=== PATIENT | female | born 1935 | race Caucasian/White ===

== ENCOUNTER → 2016-08-03 | Outpatient (CLI) | payer MEDICARE, OTHER ==
[~2016-08-03] MED LIST: ASPIRIN E.C. 8181 MG PO; CALTRATE 600 +1 TAB PO; CENTRUM SILVER1 CTB PO; CLEOCIN HC150 MG/CAP PO; COMBIGAN 0.2%-010 ML OU; COZAAR 50MG50 MG/TAB PO; GLUCOPHAGE1000 MG PO; LIQUID MAGNESI400 MG PO; NEXIUM 40MG40 MG PO; RITE AID KRILL500 MG PO; VITAMIN B121000 MCG PO; VITAMIN C500 MG PO; VITAMIN D2000 I1 PO
== END ==
LOC: MC.RAD 13:40
DX: Z12.31 Encounter for screening mammogram for malignant neoplasm of breast (principal)

== ENCOUNTER → 2017-09-20 | Outpatient (CLI) | payer MEDICARE, OTHER | LOC: MC.RAD 11:10 | DX: Z12.31 Encounter for screening mammogram for malignant neoplasm of breast (principal) ==

== ENCOUNTER 2017-11-01 14:30 | Outpatient (RCR) | payer MEDICARE, OTHER | END 2017-11-08 09:09 | disposition home or self-care (01) | LOC: WSPT 14:30 | DX: M54.41 Lumbago with sciatica, right side (principal) | CPT/HCPCS: G8978-GP; G8979-GP ==

== ENCOUNTER 2017-11-09 14:03 | Outpatient (RCR) | payer MEDICARE, OTHER | END 2018-01-14 12:28 | disposition home or self-care (01) | LOC: WSPT 14:03 | DX: M54.41 Lumbago with sciatica, right side (principal); Z53.9 Procedure and treatment not carried out, unspecified reason ==

== ENCOUNTER → 2018-10-26 | Outpatient (CLI) | payer MEDICARE, OTHER | LOC: MC.RAD 10:42 | DX: Z12.31 Encounter for screening mammogram for malignant neoplasm of breast (principal); N63.11 Unspecified lump in the right breast, upper outer quadrant ==

== ENCOUNTER → 2020-01-26 | Outpatient (CLI) | payer MEDICARE, OTHER | LOC: MC.RAD 11:26 | DX: Z12.31 Encounter for screening mammogram for malignant neoplasm of breast (principal) ==

== ENCOUNTER 2021-08-02 11:33 | Emergency (ER) | payer MEDICARE, OTHER ==
[~2021-08-02] VITALS: Ht 162.6 cm; Wt 79.5 kg
[2021-08-02 11:41] VITALS: BP 154/80; TEMP 97.6
[2021-08-02 12:33] VITALS: PULSE 71
== END 2021-08-02 12:33 | disposition home or self-care (01) ==
LOC: COL.ER 11:33
DX: M25.531 Pain in right wrist (principal); Z88.6 Allergy status to analgesic agent; Z88.5 Allergy status to narcotic agent

== ENCOUNTER 2021-11-13 07:19 | Emergency (ER) | payer MEDICARE, OTHER ==
[~2021-11-13] VITALS: Ht 160 cm; Wt 81.8 kg
[2021-11-13 07:26] VITALS: TEMP 98.3
[2021-11-13 09:40] LABS: COLLECTION METHOD CLEAN CATCH
[2021-11-13 09:52] LABS: PH 6 (5-8); SQUAMOUS EPITHELIAL None Seen /hpf (0-10); URINE APPEARANCE Clear (CLEAR/HAZY); URINE BACTERIA None Seen /hpf (NONE SEEN); URINE BILIRUBIN Negative (NEGATIVE); URINE BLOOD Negative (NEGATIVE); URINE COLOR Yellow (YELLOW); URINE GLUCOSE Negative (NEGATIVE); URINE KETONE Negative (NEGATIVE); URINE LEUKOCYTE ESTERASE Negative (NEGATIVE); URINE NITRATE Negative (NEGATIVE); URINE PROTEIN(semi-quant) Negative (NEGATIVE); URINE RBC 0-2 /hpf (0-2); URINE UROBILINOGEN Negative (NEGATIVE)
[2021-11-13] MEDS ORDERED: IBU400 MG PO (10:58)
[2021-11-13] MEDS ORDERED: NORCO 325 MG-51 TAB PO (10:58)
[2021-11-13 12:18] VITALS: BP 153/70; PULSE 67
--- NOTE | 2021-11-13 15:03 | NUR ---
Audiology Technician received call from ED for patient who is from [facility] and does not feel she can safely return home. SW met with patient who expressed although she wishes she could go home, she does not feel that is a good idea and would like to be discharge to [facility] ([facility]) if possible. ANGELICA advised she would contact Hal at [facility] to arrange this and also advised patient she may have an out of pocket cost. Patient verbalized understanding and was hopeful her fdc care coverage would help with the cost. SW advised she was unsure of patient's plan and deferred patient to [facility]'s financial team. Patient advised she can private pay if needed. ANGELICA contacted Hal at [facility] and faxed referral from ED. Hal advised they can accept today so SW faxed negative covid results and emergency admit orders. Transport time set for 1145 and time provided to RN. ANGELICA contacted patient's son, Ángel and advised patient would be discharged to [facility].
== END 2021-11-13 12:19 ==
LOC: COL.ER 07:19
PROVIDERS: Emergency Medicine
DX: M54.16 Radiculopathy, lumbar region (principal); R26.89 Other abnormalities of gait and mobility; Z20.822 Contact with and (suspected) exposure to COVID-19
CPT/HCPCS: J8540

== ENCOUNTER 2021-11-22 13:18 | Emergency (ER) | payer MEDICARE, OTHER ==
[~2021-11-22] VITALS: Ht 160 cm; Wt 81.8 kg
[~2021-11-22 13:18] MED LIST changes: +IBU400 MG PO; +NORCO 325 MG-51 TAB PO
[2021-11-22 13:20] VITALS: TEMP 98.7
[2021-11-22] MEDS ORDERED: NORCO 325 MG-7.1 TAB PO (15:05)
[2021-11-22 16:36] VITALS: BP 166/80; PULSE 65
== END 2021-11-22 16:58 | disposition home or self-care (01) ==
LOC: COL.ER 13:18
DX: M54.41 Lumbago with sciatica, right side (principal); Z88.5 Allergy status to narcotic agent

== ENCOUNTER → 2022-01-27 | Outpatient (CLI) | payer MEDICARE, OTHER ==
[~2022-01-27] MED LIST changes: +NORCO 325 MG-7.1 TAB PO
== END ==
LOC: MHCPAIN 09:30
DX: M47.896 Other spondylosis, lumbar region (principal); M54.16 Radiculopathy, lumbar region; M53.3 Sacrococcygeal disorders, not elsewhere classified
CPT/HCPCS: G0463

== ENCOUNTER 2022-08-07 22:46 | Inpatient (IN) | payer MEDICARE, OTHER ==
[~2022-08-07] VITALS: Ht 162.6 cm; Wt 87.0 kg
[2022-08-07 23:15] LABS: BASO % 0.1 % (0.0-2.0); EOS % 0.3 % (0.0-4.0); GRAN % 82.2 % (42.2-75.2); HEMATOCRIT 38.3 % (37.0-47.0); HEMOGLOBIN 12.6 g/dl (12.5-16.0); LYMPH # 0.8 K/mm3 (1.2-3.4); LYMPH % 10.3 % (20.0-51.0); MEAN CELL VOLUME 89 fl (80.0-100.0); MEAN CORPUSCULAR HEMOGLOBIN 29 pg (27-31); MEAN CORPUSCULAR HGB CONC 33 g/dl (33.0-37.0); MEAN PLATELET VOLUME 10.1 fl (7.4-10.4); MONO # 0.5 K/mm3 (0.1-0.6); MONO % 6.8 % (1.7-9.3); PLATELET COUNT 230 K/mm3 (130-400); RED BLOOD COUNT 4.31 M/mm3 (4.10-5.30); REDCELL DISTRIBUTION WIDTH-CV 13.1 % (11.5-14.5)
[2022-08-07 23:34] LABS: ALBUMIN 3.8 gm/dL (3.4-4.8); BILIRUBIN,TOTAL 0.9 mg/dL (0.2-1.2); CALCIUM 9.7 mg/dL (8.4-10.2); CREATININE, serum 0.88 mg/dL (0.57-1.11); POTASSIUM 4.1 mmol/L (3.5-4.5); TOTAL PROTEIN 7.1 gm/dL (6.2-8.1)
[2022-08-08] MEDS ORDERED: HCTZ12.5TAB PO (00:15)
[2022-08-08] MEDS ORDERED: XALATAN EYE DROPS OU (00:16)
[2022-08-08] MEDS ORDERED: PRANDIN 0.5MG0.5 MG PO (00:17)
[2022-08-08] MEDS ORDERED: TIMOLOL MALEATE5 M1 OP (00:18)
[2022-08-08] MEDS ORDERED: NEXIUM 20MG20 MG PO (00:18)
[2022-08-08 01:01] LABS: INR 1.1 (0.8-3.0); PROTHROMBIN TIME 12.5 SECONDS (9.7-12.8)
[2022-08-08 01:32] LABS: C-REACTIVE PROTEIN 7.18 mg/dL (0.00-0.50)
[2022-08-08 01:35] VITALS: BP 139/71; PULSE 68; TEMP 98.4
[2022-08-08 01:40] LABS: TROPONIN-I 0.013 ng/mL (0.00-0.033)
[2022-08-08 04:02] VITALS: BP 113/62; PULSE 77; TEMP 97.9
[2022-08-08 04:29] LABS: MAGNESIUM 1.8 mg/dL (1.6-2.6)
--- NOTE | 2022-08-08 05:05 | NUR ---
PT ARRIVED TO THE MEDICAL UNIT AT 0130HRS TO RM 303. PT A&O X 4; VSS; O2 2L VIA NC. PT COMPLAINED OF A DULL HEADACHE. PT GIVEN TYLENOL IN ED. PT STATED IT WAS GETTING BETTER. PT DENIED CHEST PAIN; PALPITATIONS, SOB, N,V,D OR DIZZINESS. PT ORIENTED TO ROOM AND HOSPITAL POLICY. ALL QUESTIONS AND CONCERNS ADDRESSED. PT EXPRESSED NO ADDITIONAL NEEDS AT THIS TIME. CALL LIGHT WITHIN REACH.
[2022-08-08 06:23] LABS: COLLECTION METHOD CLEAN CATCH
[2022-08-08 06:46] LABS: SQUAMOUS EPITHELIAL 0-2 /hpf (0-10); URINE BACTERIA None Seen /hpf (NONE SEEN)
[2022-08-08 06:47] LABS: PH 5.5 (5.0-8.5); URINE APPEARANCE Clear (CLEAR/HAZY); URINE BLOOD Negative (NEGATIVE); URINE COLOR Yellow (YELLOW); URINE GLUCOSE Negative (NEGATIVE); URINE KETONE 1+ (NEGATIVE); URINE NITRATE Negative (NEGATIVE); URINE PROTEIN(semi-quant) Negative (NEGATIVE); URINE UROBILINOGEN 0.2 E.U/dL (0.2-1.0)
[2022-08-08 07:21] VITALS: BP 120/68; PULSE 75; TEMP 98.6
--- NOTE | 2022-08-08 10:29 | NUR ---
Assessment complete. Pt standby assist to BR. Denies headache or nausea. Afebrile. O2 0.5L/NC. Denies SOA.
[2022-08-08 11:24] VITALS: BP 112/45; PULSE 78; TEMP 98.7
--- NOTE | 2022-08-08 12:13 | NUR ---
Sw tried to complete intake via phone due to pt positive for COVID-19, pt did not answer the phone. Will try back later.
--- NOTE | 2022-08-08 13:33 | NUR ---
Dr. Owusu removed pt's oxygen during rounding. SpO2 87% on RA. Placed patient back on O2 at 0.5L/NC- SpO2 90-91%. Pt has been sitting up in chair most of day. Denies pain or needs at this time.
[2022-08-08 16:26] VITALS: BP 130/56; PULSE 73; TEMP 98.5
[2022-08-08 20:06] VITALS: BP 134/69; PULSE 72; TEMP 98.5
--- NOTE | 2022-08-08 22:49 | NUR ---
Shift assessment performed. Pt is up in the chair. At time of assessment, she stated that her right hand was wet. Her IV was leaking. I attempted to resecure it with new tegaderm and tape. This seemed to work for a time then it continued to leak. The IV was discontinued on the right hand and a new one was started on the left hand. She is complaining that her cough is making her throat hurt. I contacted YEMI Rosa and she ordered Benzonatate 100 mg Q6 to help with her cough (see eMAR). Joann is also complaining that it is still painful when she urinates. SHe is voiding independently and it is light yellow in color. I explained that the antibiotics need more time to take effect but to let me know if she is still having painful urination by morning. She is otherwise having no pain or difficulty breathing. Bed in lowest position and call light within reach.
[2022-08-09 00:33] VITALS: BP 138/52; PULSE 68; TEMP 97.7
[2022-08-09 03:52] VITALS: BP 150/66; PULSE 74; TEMP 97.9
[2022-08-09 06:32] LABS: BASO % 0.6 % (0.0-2.0); EOS % 0.3 % (0.0-4.0); GRAN # 2.3 K/mm3 (1.4-6.5); GRAN % 64.9 % (42.2-75.2); HEMOGLOBIN 10.8 g/dl (12.5-16.0); LYMPH # 0.9 K/mm3 (1.2-3.4); LYMPH % 25.8 % (20.0-51.0); MEAN CELL VOLUME 89 fl (80.0-100.0); MEAN CORPUSCULAR HEMOGLOBIN 29 pg (27-31); MEAN CORPUSCULAR HGB CONC 32 g/dl (33.0-37.0); MEAN PLATELET VOLUME 10.9 fl (7.4-10.4); MONO # 0.3 K/mm3 (0.1-0.6); MONO % 7.8 % (1.7-9.3); PLATELET COUNT 222 K/mm3 (130-400); RED BLOOD COUNT 3.76 M/mm3 (4.10-5.30); REDCELL DISTRIBUTION WIDTH-CV 13.3 % (11.5-14.5)
[2022-08-09 06:34] LABS: HEMATOCRIT 33.3 % (37.0-47.0)
[2022-08-09 06:51] LABS: ALBUMIN 3.2 gm/dL (3.4-4.8); BILIRUBIN,TOTAL 0.3 mg/dL (0.2-1.2); CREATININE, serum 0.76 mg/dL (0.57-1.11); POTASSIUM 3.8 mmol/L (3.5-4.5); TOTAL PROTEIN 6.3 gm/dL (6.2-8.1)
[2022-08-09 07:21] VITALS: BP 132/54; PULSE 64; TEMP 97.7
[2022-08-09] MEDS ORDERED: DECADRON6 MG PO (08:55)
[2022-08-09] MEDS ORDERED: RT Albuterol HFA MDI IH (08:55)
--- NOTE | 2022-08-09 10:09 | NUR ---
SW met with pt to complete intake. Pt reports living at [facility] and is independent with ADLS, but does have a walker. Pt daughter, Lindsay @ [phone] is next of kin. Pt gets her medications from [facility] and PCP is Dr. Daniel Wade. No other needs at this time. DC: Back to [facility].
--- NOTE | 2022-08-09 11:21 | NUR ---
Discharge orders rec'd. Tele and INT d/c'd. Will need to coordinate transfer with [facility].
[2022-08-09 11:43] VITALS: BP 141/62; PULSE 65; TEMP 98.2
--- NOTE | 2022-08-09 13:22 | NUR ---
Discharge instructions reviewed with patient- patient verbalizes understanding. [facility] with [facility] staff.
== END 2022-08-09 13:20 | disposition home or self-care (01) | DRG 177 ==
LOC: COL.ER 22:46 → MEDICAL 23:52
PROVIDERS: Nurse Practitioner Family; Physician Assistant; ADMIT Student in an Organized Health Care Education/Training Program
PROC: XW033E5 Introduction of Remdesivir Anti-infective into Peripheral Vein, Percutaneous Approach, New Technology Group 5 (ICD-10-PCS; principal; 2022-08-08)
DX: U07.1 COVID-19 (principal); J96.01 Acute respiratory failure with hypoxia; E87.1 Hypo-osmolality and hyponatremia; E87.20 Acidosis, unspecified; I10 Essential (primary) hypertension; Z96.659 Presence of unspecified artificial knee joint; E11.65 Type 2 diabetes mellitus with hyperglycemia; Z23 Encounter for immunization; Z90.49 Acquired absence of other specified parts of digestive tract; Z90.89 Acquired absence of other organs; Z88.6 Allergy status to analgesic agent; Z88.0 Allergy status to penicillin; Z88.2 Allergy status to sulfonamides; Z88.8 Allergy status to other drugs, medicaments and biological substances; Z79.82 Long term (current) use of aspirin; Z79.84 Long term (current) use of oral hypoglycemic drugs
CPT/HCPCS: J0248; J0696; J1650; J1815; J2405; J7030; J7050; J8540